=== PATIENT | female | born 1985 ===

== ENCOUNTER 2017-04-28 02:25 | Emergency (ER) | payer SELFPAY ==
[2017-04-28 02:50] VITALS: BMI 23.0
[2017-04-28] MEDS ORDERED: Simethicone 80 mg Chewtab PO STA (02:50)
[2017-04-28 02:51] VITALS: BP 115/70; PULSE 76; RESP 18; TEMP 98.6; O2SAT 100
[2017-04-28 03:16] LABS: BASO % 0.5 % (0.0-2.0); EOS # 0.1 K/uL (0.0-0.7); EOS % 1.3 % (0.0-4.0); HEMATOCRIT 30.9 % (34.0-47.0); LYMPH # 2.3 K/uL (1.0-4.3); LYMPH % 28.6 % (20.0-40.0); MEAN CELL VOLUME 64.8 fl (81.0-99.0); MEAN CORPUSCULAR HEMOGLOBIN 20.4 pg (27.0-31.0); MEAN CORPUSCULAR HGB CONC 31.4 g/dL (33.0-37.0); MEAN PLATELET VOLUME 6.3 fl (7.2-11.7); MONO # 0.6 K/uL (0.0-0.8); MONO % 7.8 % (0.0-10.0); NEUT # 4.9 K/uL (1.8-7.0); NEUT % 61.8 % (50.0-75.0); RED CELL DISTRIBUTION WIDTH 19.3 % (11.5-14.5); WHITE BLOOD COUNT 7.9 K/uL (4.8-10.8)
[2017-04-28 03:23] LABS: BLOOD UREA NITROGEN 12 mg/dl (7-17); CALCIUM 8.9 mg/dL (8.4-10.2); CARBON DIOXIDE 24 mmol/L (22-30); CHLORIDE 104 mmol/L (98-107); GFR AFRICAN-AMERICAN > 60; GLUCOSE,RANDOM 94 mg/dL (65-105); POTASSIUM 3.9 MMOL/L (3.6-5.0); SODIUM 141 mmol/l (132-148)
== END 2017-04-28 05:27 | disposition home or self-care (01) ==
LOC: H.ER 02:25
DX: R10.9 Unspecified abdominal pain (principal); R07.89 Other chest pain
CPT/HCPCS: 71020; 80048; 81025; 85025; 96374; 99283; J1885

== ENCOUNTER 2018-10-25 20:08 | Inpatient (IN) | payer OTHER ==
[2018-10-25 20:09] VITALS: BMI 23.0
--- NOTE | 2018-10-25 21:09 | ED PDOC ---
HPI: Psych/Substance Abuse Time Seen by Provider: 10/25/18 20:45 Chief Complaint (Nursing): Psychiatric Evaluation Chief Complaint (Provider): Psychiatric Evaluation History Per: Patient, Other (Friend) History/Exam Limitations: no limitations Onset/Duration Of Symptoms: Hrs Current Symptoms Are (Timing): Still Present Additional Complaint(s): Patient is a 33 y/o female with no significant PMHx who was brought into the ED by a family friend for psychiatric evaluation. Patient's family and friend believe the patient is not behaving like her normal active self. Patient's friend states she has been spacing out. Pt states she really does not know why she is here. She denies any being sad. No previous psych history. Patient denies any medical complaints, substance abuse, SI/HI, and visual/auditory hallucinations. Of note, patient's LMP was last month. PCP: None Provided Past Medical History Reviewed: Historical Data, Nursing Documentation, Vital Signs Vital Signs: Last Vital Signs Temp 98.4 F 10/25/18 20:43 Pulse 62 10/25/18 20:43 Resp 18 10/25/18 20:43 BP 97/46 L 10/25/18 20:43 Pulse Ox 100 10/25/18 20:43 - Medical History PMH: No Chronic Diseases - Surgical History Surgical History: Appendectomy - Family History Family History: States: No Known Family Hx - Social History Current smoker - smoking cessation education provided: No Ex-Smoker (has not smoked in the last 12 months): No Alcohol: None Drugs: Denies - Home Medications Home Medications: Ambulatory Orders Medication Instructions Recorded Ibuprofen [Motrin Tab] 600 mg PO Q6 #30 tab 04/28/17 Simethicone [Gas Relief] 80 mg PO BID #30 ctb 04/28/17 - Allergies Allergies/Adverse Reactions: Allergies Allergy/AdvReac Type Severity Reaction Status Date / Time No Known Allergies Allergy Verified 04/28/17 02:47 Review of Systems ROS Statement: Except As Marked, All Systems Reviewed And Found Negative Neurological: Negative for: Other (visual or aduitory hallucinations) Psych: Negative for: Suicidal ideation (or homicidal ideation) Physical Exam - Reviewed Nursing Documentation Reviewed: Yes Vital Signs Reviewed: Yes - Physical Exam Comments: GENERAL APPEARANCE: Patient is awake, alert, oriented x 3, in no acute distress. SKIN: Warm, dry; (-) cyanosis HEAD: (-) scalp swelling, (-) scalp tenderness. EYES: (-) conjunctival pallor, (-) scleral icterus, (-) nystagmus. ENMT: Mucous membranes moist. Airway patent: (-) stridor. NECK: (-) tenderness, (-) stiffness, (-) lymphadenopathy. HEART AND CARDIOVASCULAR: (-) irregularity; (-) murmur, (-) gallop. CHEST AND RESPIRATORY: (-) rales, (-) rhonchi, (-) wheezes; breath sounds equal. ABDOMEN: Soft, (-) distention, (-) tenderness, (-) guarding. NEURO AND PSYCH: Mental status as above. Affect: monotone. flat software systems architect: Intact. Pupils equal and reactive; EOMI; (-) facial asymmetry; tongue and uvula midline. Strength and DTRs symmetric. - Laboratory Results Result Diagrams: 10/25/18 21:31 10/25/18 21:31 - ECG O2 Sat by Pulse Oximetry: 100 (RA) Pulse Ox Interpretation: Normal Medical Decision Making Medical Decision Making: Time: 2056 Impression: Crisis Evaluation Plan: Alcohol Serum CMP Drug Screen Urine CBC UA 22:30 labs and urine are back, pt anemic, with history of discussed with crisis, recommend ct head to r/o any other causes CT head w/o contrast ordered 23:20 CT Head FINDINGS: BRAIN No acute intraparenchymal hemorrhage. No mass lesion. No CT evidence for acute territorial infarct. No midline shift or extra-axial collections. VENTRICLES: Note is made of a subtle 2.5 x 2.0 cm area demonstrating hypoattenuation in the right medial frontal lobe involving the right caudate head and adjacent anterior limb of the right internal capsule. Mass effect with slight compression of the anterior horn of the right lateral ventricle is noted. Underlying mass lesion is not excluded. Follow-up with MRI pre/post contrast is recommended. ORBITS: The orbits are unremarkable. SINUSES AND MASTOIDS: The paranasal sinuses and mastoid air cells are clear. BONES: No fracture. SOFT TISSUES: Unremarkable. IMPRESSION: Abnormal areas in the right frontal lobe as above, mass lesion is not excluded. Follow-up with MRI pre/post contrast is recommended. Will contact neuro and admit to medicine 23:39 spoke to hospitalist who accept pt for admission, Dr. skinner 23:41 spoke to neurologist, Dr. Anaya, recommends MRI and EEG Scribe Attestation: Documented by Beka Abbott, acting as a scribe for Jose Richey PA-C Provider Scribe Attestation: All medical record entries made by the Scribe were at my direction and personally dictated by me. I have reviewed the chart and agree that the record accurately reflects my personal performance of the history, physical exam, medical decision making, and the department course for this patient. I have also personally directed, reviewed, and agree with the discharge instructions and disposition. Disposition - Clinical Impression Clinical Impression: Mass of brain, Anemia - Patient ED Disposition Is Patient to be Admitted: Yes Doctor Will See Patient In The: Hospital - Disposition Disposition Time: 23:40 Condition: STABLE Forms: [employer] (Lao) - Pt Status Changed To: Hospital Disposition Of: Inpatient - Admit Certification Admit to Inpatient:: After my assessment, the patient will require hospitalization for at least two midnights. This is because of the severity of symptoms shown, intensity of services needed, and/or the medical risk in this patient being treated as an outpatient. - POA Present On Arrival: None
[2018-10-25 21:46] LABS: BASO % 0.5 % (0.0-2.0); EOS # 0.1 K/uL (0.0-0.7); EOS % 1.5 % (0.0-4.0); HEMOGLOBIN 8.4 g/dL (12.0-16.0); LYMPH # 1.5 K/uL (1.0-4.3); MEAN CELL VOLUME 63.9 fl (81.0-99.0); MEAN CORPUSCULAR HEMOGLOBIN 19.6 pg (27.0-31.0); MEAN CORPUSCULAR HGB CONC 30.7 g/dL (33.0-37.0); MEAN PLATELET VOLUME 6.1 fl (7.2-11.7); MONO # 0.4 K/uL (0.0-0.8); NEUT # 3.2 K/uL (1.8-7.0); NRBC % 0.1 % (0.0-0.0); RBC 4.3 Mil/uL (3.80-5.20); RED CELL DISTRIBUTION WIDTH 18.7 % (11.5-14.5); WHITE BLOOD COUNT 5.3 K/uL (4.8-10.8)
[2018-10-25 21:55] LABS: SQUAMOUS EPITHIAL < 1 /hpf (0-5); URINE BILIRUBIN NEGATIVE (NEGATIVE); URINE BLOOD NEGATIVE (NEGATIVE); URINE CLARITY CLEAR (Clear); URINE COLOR YELLOW (YELLOW); URINE GLUCOSE (UA) NEG (NEGATIVE); URINE LEUKOCYTE ESTERASE TRACE Leu/uL (Negative); URINE PROTEIN NEGATIVE (NEGATIVE); URINE UROBILINOGEN 0.2-1.0 mg/dL (0.2-1.0)
[2018-10-25 21:56] LABS: ALB/GLOB RATIO 1.2 (1.0-2.1); ALBUMIN 4.2 g/dL (3.5-5.0); ALT/SGPT 35 U/L (9-52); AST/SGOT 25 U/L (14-36); BLOOD UREA NITROGEN 11 mg/dl (7-17); CALCIUM 8.7 mg/dL (8.4-10.2); GFR NON-AFRICAN AMERICAN > 60
[2018-10-25 22:14] LABS: BARBITURATES, UR NEGATIVE (NEGATIVE); BENZODIAZEPINES, UR NEGATIVE (NEGATIVE); OPIATES, UR NEGATIVE (NEGATIVE); PHENCYCLIDINE, UR NEGATIVE (NEGATIVE)
--- NOTE | 2018-10-26 00:24 | CP.PCM.HP ---
<Tom Eric - Last Filed: 10/26/18 00:55> History of Present Illness - History of Present Illness History of Present Illness: This is 33 y/o F with no significant PMH admitted to [facility] for evaluation and treatment of R frontal lobe mass lesion. As per patient, she was brought here by family/friends due to one day hx of abnormal behavior, flat affect and drowsiness. Patient denies any knowledge of this findings, reports she feels fine, just feels sleepy today and " I don't know why I am here". Denies any previous psych history, substance use, depression, SI/HI, Anxiety or weakness. No chest pain/SOB/Blurred vision/headaches or urinary symptoms. History gathered by patient, Family friend not present during my interview. PMD: None PMH: Denies PSH: Denies Alllg: NKDA SH: Denies alcohol/smoking or drug use FH: Denies psych history or any medical conditions. ROS: As per HPI ER Course: VS: stable CBC: + anemia CMP, urine and U tox negative for any significant findings Crisis Eval CT head: F/u official read, R frontal lobe mass lesion Present on Admission - Present on Admission Any Indicators Present on Admission: No Review of Systems - Constitutional Constitutional: Daytime Sleepiness - EENT Eyes: absent: Blurred Vision, Change in Vision, Dry Eye, Floaters, Pain, Photophobia, Sees Flashes, Spots in Vision Ears: absent: Decreased Hearing, Disequilibrium, Dizziness Nose/Mouth/Throat: absent: Nasal Congestion, Dry Mouth, Hoarsness - Breasts Breasts: absent: Pain - Cardiovascular Cardiovascular: absent: Chest Pain, Palpitations - Respiratory Respiratory: absent: Cough, Dyspnea, Hemoptysis, Dyspnea on Exertion - Gastrointestinal Gastrointestinal: absent: Abdominal Pain - Genitourinary Genitourinary: absent: Change in Urinary Stream, Dysuria - Musculoskeletal Musculoskeletal: absent: Abnormal Gait, Arthralgias, Muscle Cramps, Muscle Weakness, Stiffness, Tingling - Integumentary Integumentary: absent: Dry Skin, Lesions, Rash - Neurological Neurological: absent: Abnormal Hearing, Abnormal Movements, Abnormal Speech, Behavioral Changes, Dizziness, Numbness, Paresthesias, Syncope, Tingling, Tremor, Vertigo, Weakness, Other Visual Disturbances - Psychiatric Psychiatric: absent: Anxiety, Confusion, Depression, Hallucinations, Homicidal Ideation, Panic Attacks, Suicidal Ideation, Visual Hallucinations, Tactile Hallucinations - Endocrine Endocrine: absent: Change in Body Appearance - Hematologic/Lymphatic Hematologic: absent: Easy Bleeding Past Patient History - Past Social History Alcohol: None Drugs: Denies - PSYCHIATRIC Hx Substance Use: No - SURGICAL HISTORY Hx Appendectomy: Yes - ANESTHESIA Hx Anesthesia: Yes Hx Anesthesia Reactions: No Hx Malignant Hyperthermia: No Meds Allergies/Adverse Reactions: Allergies Allergy/AdvReac Type Severity Reaction Status Date / Time No Known Allergies Allergy Verified 04/28/17 02:47 Physical Exam - Constitutional Appears: No Acute Distress, Other (Flat affect ) - Head Exam Head Exam: ATRAUMATIC, NORMAL INSPECTION, NORMOCEPHALIC - Eye Exam Eye Exam: EOMI, Normal appearance, PERRL Pupil Exam: NORMAL ACCOMODATION - ENT Exam ENT Exam: Mucous Membranes Moist, Normal Exam - Neck Exam Neck exam: Positive for: Normal Inspection - Respiratory Exam Respiratory Exam: Clear to Auscultation Bilateral, NORMAL BREATHING PATTERN. absent: Decreased Breath Sounds, Rhonchi, Wheezes, Respiratory Distress - Cardiovascular Exam Cardiovascular Exam: REGULAR RHYTHM, +S1, +S2 - GI/Abdominal Exam GI & Abdominal Exam: Normal Bowel Sounds, Soft. absent: Tenderness - Extremities Exam Extremities exam: Positive for: normal capillary refill, normal inspection, pedal pulses present. Negative for: tenderness - Back Exam Back exam: NORMAL INSPECTION. absent: CVA tenderness (L), CVA tenderness (R) - Neurological Exam Neurological exam: Alert, CN II-XII Intact, Oriented x3, Reflexes Normal Additional comments: negative babinski Good finger to nose coordination Strength 5/5 UEs and LEs AAOx3 - Psychiatric Exam Psychiatric exam: Flat Affect - Skin Skin Exam: Dry, Intact, Normal Color, Warm Results - Vital Signs Recent Vital Signs: Last Vital Signs Temp 98 F 10/25/18 23:46 Pulse 70 10/25/18 23:46 Resp 18 10/25/18 23:46 BP 98/56 L 10/25/18 23:46 Pulse Ox 100 10/25/18 23:55 - Labs Result Diagrams: 10/25/18 21:31 10/25/18 21:31 Labs: Laboratory Results - last 24 hr 10/25/18 10/25/18 10/25/18 21:31 21:31 21:31 WBC 5.3 RBC 4.30 Hgb 8.4 L Hct 27.5 L MCV 63.9 L MCH 19.6 L MCHC 30.7 L RDW 18.7 H Plt Count 449 H MPV 6.1 L Neut % (Auto) 61.0 Lymph % (Auto) 29.0 [place] % (Auto) 8.0 Eos % (Auto) 1.5 Baso % (Auto) 0.5 Neut # (Auto) 3.2 Lymph # (Auto) 1.5 [place] # (Auto) 0.4 Eos # (Auto) 0.1 Baso # (Auto) 0.0 Sodium 138 Potassium 3.7 Chloride 102 Carbon Dioxide 26 Anion Gap 14 BUN 11 Creatinine 0.6 L Est GFR ( Amer) > 60 Est GFR (Non-Af Amer) > 60 Random Glucose 88 Calcium 8.7 Total Bilirubin 0.6 AST 25 ALT 35 Alkaline Phosphatase 87 Total Protein 7.7 Albumin 4.2 Globulin 3.5 Albumin/Globulin Ratio 1.2 Urine Color Urine Clarity Urine pH Ur Specific [place] Urine Protein Urine Glucose (UA) Urine Ketones Urine Blood Urine Nitrate Urine Bilirubin Urine Urobilinogen Ur Leukocyte Esterase Urine RBC (Auto) Urine Microscopic WBC Ur Squamous Epith Cells Urine Opiates Screen Negative Urine Methadone Screen Negative Ur Barbiturates Screen Negative Ur Phencyclidine Scrn Negative Ur Amphetamines Screen Negative U Benzodiazepines Scrn Negative U Oth Cocaine Metabols Negative U Cannabinoids Screen Negative Alcohol, Quantitative < 10 10/25/18 21:31 WBC RBC Hgb Hct MCV MCH MCHC RDW Plt Count MPV Neut % (Auto) Lymph % (Auto) [place] % (Auto) Eos % (Auto) Baso % (Auto) Neut # (Auto) Lymph # (Auto) [place] # (Auto) Eos # (Auto) Baso # (Auto) Sodium Potassium Chloride Carbon Dioxide Anion Gap BUN Creatinine Est GFR ( Amer) Est GFR (Non-Af Amer) Random Glucose Calcium Total Bilirubin AST ALT Alkaline Phosphatase Total Protein Albumin Globulin Albumin/Globulin Ratio Urine Color Yellow Urine Clarity Clear Urine pH 6.0 Ur Specific [place] 1.013 Urine Protein Negative Urine Glucose (UA) Neg Urine Ketones Negative Urine Blood Negative Urine Nitrate Negative Urine Bilirubin Negative Urine Urobilinogen 0.2-1.0 Ur Leukocyte Esterase Trace Urine RBC (Auto) 1 Urine Microscopic WBC < 1 Ur Squamous Epith Cells < 1 Urine Opiates Screen Urine Methadone Screen Ur Barbiturates Screen Ur Phencyclidine Scrn Ur Amphetamines Screen U Benzodiazepines Scrn U Oth Cocaine Metabols U Cannabinoids Screen Alcohol, Quantitative Assessment & Plan - Assessment and Plan (Free Text) Assessment: A/P: 33 y/o F with no significant PMH admitted to [facility] for evaluation and treatment of R frontal lobe mass lesion. R frontal lobe mass lesion, Behavior changes - CT head: F/u official read - Consult Neurology, Dr. Anaya, f/u recommendations - F/u MRI w/ and w/o CONT - F/u EEG - Monitor for any behavior changes - F/u TSH/B12/Folate - Admit to tele Behavior changes/ Flat affect - Consult Psych, f/u recommendations - F/u TSH/B12/Folate Microcytic Anemia, Chronic - F/u Iron/TIBC and Ferritin DVT PPX - SCD/Ambulatory <Duane Rae - Last Filed: 10/26/18 06:21> Results - Vital Signs Recent Vital Signs: Last Vital Signs Temp 98 F 10/25/18 23:46 Pulse 70 10/25/18 23:46 Resp 18 10/25/18 23:46 BP 98/56 L 10/25/18 23:46 Pulse Ox 100 10/25/18 23:55 - Labs Result Diagrams: 10/25/18 21:31 10/25/18 21:31 Labs: Laboratory Results - last 24 hr 10/25/18 10/25/18 10/25/18 21:31 21:31 21:31 WBC 5.3 RBC 4.30 Hgb 8.4 L Hct 27.5 L MCV 63.9 L MCH 19.6 L MCHC 30.7 L RDW 18.7 H Plt Count 449 H MPV 6.1 L Neut % (Auto) 61.0 Lymph % (Auto) 29.0 [place] % (Auto) 8.0 Eos % (Auto) 1.5 Baso % (Auto) 0.5 Neut # (Auto) 3.2 Lymph # (Auto) 1.5 [place] # (Auto) 0.4 Eos # (Auto) 0.1 Baso # (Auto) 0.0 Sodium 138 Potassium 3.7 Chloride 102 Carbon Dioxide 26 Anion Gap 14 BUN 11 Creatinine 0.6 L Est GFR ( Amer) > 60 Est GFR (Non-Af Amer) > 60 Random Glucose 88 Calcium 8.7 Total Bilirubin 0.6 AST 25 ALT 35 Alkaline Phosphatase 87 Total Protein 7.7 Albumin 4.2 Globulin 3.5 Albumin/Globulin Ratio 1.2 Urine Color Urine Clarity Urine pH Ur Specific [place] Urine Protein Urine Glucose (UA) Urine Ketones Urine Blood Urine Nitrate Urine Bilirubin Urine Urobilinogen Ur Leukocyte Esterase Urine RBC (Auto) Urine Microscopic WBC Ur Squamous Epith Cells Urine Opiates Screen Negative Urine Methadone Screen Negative Ur Barbiturates Screen Negative Ur Phencyclidine Scrn Negative Ur Amphetamines Screen Negative U Benzodiazepines Scrn Negative U Oth Cocaine Metabols Negative U Cannabinoids Screen Negative Alcohol, Quantitative < 10 10/25/18 21:31 WBC RBC Hgb Hct MCV MCH MCHC RDW Plt Count MPV Neut % (Auto) Lymph % (Auto) [place] % (Auto) Eos % (Auto) Baso % (Auto) Neut # (Auto) Lymph # (Auto) [place] # (Auto) Eos # (Auto) Baso # (Auto) Sodium Potassium Chloride Carbon Dioxide Anion Gap BUN Creatinine Est GFR ( Amer) Est GFR (Non-Af Amer) Random Glucose Calcium Total Bilirubin AST ALT Alkaline Phosphatase Total Protein Albumin Globulin Albumin/Globulin Ratio Urine Color Yellow Urine Clarity Clear Urine pH 6.0 Ur Specific [place] 1.013 Urine Protein Negative Urine Glucose (UA) Neg Urine Ketones Negative Urine Blood Negative Urine Nitrate Negative Urine Bilirubin Negative Urine Urobilinogen 0.2-1.0 Ur Leukocyte Esterase Trace Urine RBC (Auto) 1 Urine Microscopic WBC < 1 Ur Squamous Epith Cells < 1 Urine Opiates Screen Urine Methadone Screen Ur Barbiturates Screen Ur Phencyclidine Scrn Ur Amphetamines Screen U Benzodiazepines Scrn U Oth Cocaine Metabols U Cannabinoids Screen Alcohol, Quantitative Assessment & Plan - Assessment and Plan (Free Text) Plan: History as documented by resident was reviewed with patient and resident. I performed the parnell elements of exam and agree with the above findings. Diagnostics were reviewed and medical decision making and plan of care performed by me. 33 yo female with no significant PMH p/w AMS. Denies any complaints but as per friend who brought her in she has not been acting like herself. On my exam she is AAOx3 but kind of somnolent with flat mood and affect. Neuro-exam completely non-focal. Blood work unremarkable except for anemia. CT head I personally reviewed showed suspicious right frontal lobe lesion. neurology on board recommended MRI. Will follow recommendations.
--- NOTE | 2018-10-26 08:05 | CP.PCM.CON ---
History of Present Illness - History of Present Illness History of Present Illness: Psychiatry consult note; consult called to evaluated bizarre behavior CC: "I'm fine." HPI: 33 yo female w/ no past psychiatric or medical history, presented w/ abnormal behavior, found to have low-attenuation in the head of the right caudate nuclear limb right internal capsule w/ mass-effect upon frontal horn right lateral ventricle on head CT. Patient denies acute depression/anxiety/AH/VH/SI/HI/paranoia/delusions. She denies acute psychiatric complaints. A+ O x 4. No acute bizarre behavior observed; no behavioral disturbances or agitation in the ER. Patient does not believe she needs any psychiatric treatment at this time. PMD: None PMH: Denies PPH: Denies PSH: Denies ALL: NKDA SH: Denies alcohol/smoking or drug use; from [facility], lives w/ and two children FH: Denies psych history or any medical conditions. Impression: 33 yo female w/ no acute psychiatric complaints, likely had behavioral changes secondary to acute neurological condition. -No acute psychiatric medications or treatment indicated at this time -Recommend neurology consult and further brain imaging as recommended by neurology oim consultant Past Patient History - Past Social History Alcohol: None Drugs: Denies - PSYCHIATRIC Hx Substance Use: No - SURGICAL HISTORY Hx Appendectomy: Yes - ANESTHESIA Hx Anesthesia: Yes Hx Anesthesia Reactions: No Hx Malignant Hyperthermia: No Meds Allergies/Adverse Reactions: Allergies Allergy/AdvReac Type Severity Reaction Status Date / Time No Known Allergies Allergy Verified 04/28/17 02:47 - Medications Medications: Current Medications Ibuprofen (Motrin Tab) 400 mg PO Q6 PRN PRN Reason: Fever >100.4 F Ondansetron HCl (Zofran Inj) 4 mg IVP Q6 PRN PRN Reason: Nausea/Vomiting Results - Vital Signs Recent Vital Signs: Last Vital Signs Temp 98.7 F 10/26/18 05:27 Pulse 65 10/26/18 06:28 Resp 16 10/26/18 06:28 BP 98/60 L 10/26/18 06:28 Pulse Ox 98 10/26/18 06:28 - Labs Result Diagrams: 10/25/18 21:31 10/25/18 21:31 Labs: Laboratory Results - last 24 hr 10/25/18 10/25/18 10/25/18 21:31 21:31 21:31 WBC 5.3 RBC 4.30 Hgb 8.4 L Hct 27.5 L MCV 63.9 L MCH 19.6 L MCHC 30.7 L RDW 18.7 H Plt Count 449 H MPV 6.1 L Neut % (Auto) 61.0 Lymph % (Auto) 29.0 [place] % (Auto) 8.0 Eos % (Auto) 1.5 Baso % (Auto) 0.5 Neut # (Auto) 3.2 Lymph # (Auto) 1.5 [place] # (Auto) 0.4 Eos # (Auto) 0.1 Baso # (Auto) 0.0 Sodium 138 Potassium 3.7 Chloride 102 Carbon Dioxide 26 Anion Gap 14 BUN 11 Creatinine 0.6 L Est GFR ( Amer) > 60 Est GFR (Non-Af Amer) > 60 Random Glucose 88 Calcium 8.7 Total Bilirubin 0.6 AST 25 ALT 35 Alkaline Phosphatase 87 Total Protein 7.7 Albumin 4.2 Globulin 3.5 Albumin/Globulin Ratio 1.2 Urine Color Urine Clarity Urine pH Ur Specific [place] Urine Protein Urine Glucose (UA) Urine Ketones Urine Blood Urine Nitrate Urine Bilirubin Urine Urobilinogen Ur Leukocyte Esterase Urine RBC (Auto) Urine Microscopic WBC Ur Squamous Epith Cells Urine Opiates Screen Negative Urine Methadone Screen Negative Ur Barbiturates Screen Negative Ur Phencyclidine Scrn Negative Ur Amphetamines Screen Negative U Benzodiazepines Scrn Negative U Oth Cocaine Metabols Negative U Cannabinoids Screen Negative Alcohol, Quantitative < 10 10/25/18 21:31 WBC RBC Hgb Hct MCV MCH MCHC RDW Plt Count MPV Neut % (Auto) Lymph % (Auto) [place] % (Auto) Eos % (Auto) Baso % (Auto) Neut # (Auto) Lymph # (Auto) [place] # (Auto) Eos # (Auto) Baso # (Auto) Sodium Potassium Chloride Carbon Dioxide Anion Gap BUN Creatinine Est GFR ( Amer) Est GFR (Non-Af Amer) Random Glucose Calcium Total Bilirubin AST ALT Alkaline Phosphatase Total Protein Albumin Globulin Albumin/Globulin Ratio Urine Color Yellow Urine Clarity Clear Urine pH 6.0 Ur Specific [place] 1.013 Urine Protein Negative Urine Glucose (UA) Neg Urine Ketones Negative Urine Blood Negative Urine Nitrate Negative Urine Bilirubin Negative Urine Urobilinogen 0.2-1.0 Ur Leukocyte Esterase Trace Urine RBC (Auto) 1 Urine Microscopic WBC < 1 Ur Squamous Epith Cells < 1 Urine Opiates Screen Urine Methadone Screen Ur Barbiturates Screen Ur Phencyclidine Scrn Ur Amphetamines Screen U Benzodiazepines Scrn U Oth Cocaine Metabols U Cannabinoids Screen Alcohol, Quantitative
[2018-10-26 08:17] LABS: IRON 28 ug/dL (37-170)
[2018-10-26 08:24] LABS: % IRON SATURATION 7 % (20-55); TOTAL IRON BINDING CAPACITY 404 ug/dL (250-450)
[2018-10-26 08:56] LABS: FERRITIN 4.8 ng/Ml (6.24-137.0)
--- NOTE | 2018-10-26 08:56 | CT ---
Date of service: 10/25/2018 PROCEDURE: CT HEAD WITHOUT CONTRAST. HISTORY: bizzarre behavior COMPARISON: None available. TECHNIQUE: Axial computed tomography images were obtained through the head/brain without intravenous contrast. Radiation dose: Total exam DLP = 670.89 mGy-cm. This CT exam was performed using one or more of the following dose reduction techniques: Automated exposure control, adjustment of the mA and/or kV according to patient size, and/or use of iterative reconstruction technique. FINDINGS: HEMORRHAGE: No intracranial hemorrhage. BRAIN: Low attenuation in the head of the right caudate nucleus and possibly anterior limb right internal capsule. Suspicious for infarct of indeterminate chronicity. Possibly subacute. There is resulting mild mass-effect upon the frontal horn of the right lateral ventricle. No hemorrhage. No other infarct appreciated elsewhere. VENTRICLES: Unremarkable. No hydrocephalus. CALVARIUM: Unremarkable. PARANASAL SINUSES: Unremarkable as visualized. No significant inflammatory changes. MASTOID AIR CELLS: Unremarkable as visualized. No inflammatory changes. OTHER FINDINGS: None. IMPRESSION: Low-attenuation in the head of the right caudate nucleus and anterior limb right internal capsule with mass-effect upon frontal horn right lateral ventricle. Possible ischemic change, likely subacute. Recommend further evaluation with magnetic resonance imaging. The preliminary findings for this examination were reported by [facility] at 11:23 p.m. on 10/25/2018. There is concurrence of this report with the preliminary findings.
--- NOTE | 2018-10-26 13:37 | CP.PCM.CON ---
History of Present Illness - History of Present Illness History of Present Illness: Neurology Consultation Note: Consult requested by Dr. Rae Ms. Dial is a 33-year-old woman with no significant past medical history, who was brought to the ED by family for worsening affect, somnolence and change in personality. A CT scan of the head was performed and showed a right frontal, caudate hypodense area with mild mass effect consistent with a possible subacute ischemic stroke. Review of Systems - Review of Systems Systems not reviewed;Unavailable: Altered Mental Status Past Patient History - Past Social History Alcohol: None Drugs: Denies - PSYCHIATRIC Hx Substance Use: No - SURGICAL HISTORY Hx Appendectomy: Yes - ANESTHESIA Hx Anesthesia: Yes Hx Anesthesia Reactions: No Hx Malignant Hyperthermia: No Meds Allergies/Adverse Reactions: Allergies Allergy/AdvReac Type Severity Reaction Status Date / Time No Known Allergies Allergy Verified 04/28/17 02:47 - Medications Medications: Current Medications Iron Sucrose 100 mg/ Sodium (Chloride) 105 mls @ 105 mls/hr IVPB DAILY [facility] Last Admin: 10/26/18 10:23 Dose: 105 mls/hr Ibuprofen (Motrin Tab) 400 mg PO Q6 PRN PRN Reason: Fever >100.4 F Ondansetron HCl (Zofran Inj) 4 mg IVP Q6 PRN PRN Reason: Nausea/Vomiting Physical Exam - Constitutional Appears: Well - Head Exam Head Exam: ATRAUMATIC, NORMAL INSPECTION, NORMOCEPHALIC - Eye Exam Eye Exam: EOMI, Normal appearance, PERRL Pupil Exam: NORMAL ACCOMODATION, PERRL - ENT Exam ENT Exam: Mucous Membranes Moist, Normal Exam - Neck Exam Neck exam: Positive for: Normal Inspection - Respiratory Exam Respiratory Exam: Clear to Auscultation Bilateral, NORMAL BREATHING PATTERN - Cardiovascular Exam Cardiovascular Exam: REGULAR RHYTHM - GI/Abdominal Exam GI & Abdominal Exam: Normal Bowel Sounds, Soft. absent: Tenderness - Extremities Exam Extremities exam: Positive for: normal inspection - Back Exam Back exam: NORMAL INSPECTION - Neurological Exam Neurological exam: Alert, CN II-XII Intact, Normal Gait, Oriented x3, Reflexes Normal - Psychiatric Exam Psychiatric exam: Depressed, Flat Affect - Skin Skin Exam: Dry, Intact, Normal Color, Warm Results - Vital Signs Recent Vital Signs: Last Vital Signs Temp 98.7 F 10/26/18 05:27 Pulse 73 10/26/18 09:09 Resp 18 04/04/19 09:09 BP 114/59 L 10/26/18 09:09 Pulse Ox 100 10/26/18 09:35 - Labs Result Diagrams: 10/25/18 21:31 10/25/18 21:31 Labs: Laboratory Results - last 24 hr 10/25/18 10/25/18 10/25/18 21:31 21:31 21:31 WBC 5.3 RBC 4.30 Hgb 8.4 L Hct 27.5 L MCV 63.9 L MCH 19.6 L MCHC 30.7 L RDW 18.7 H Plt Count 449 H MPV 6.1 L Neut % (Auto) 61.0 Lymph % (Auto) 29.0 [place] % (Auto) 8.0 Eos % (Auto) 1.5 Baso % (Auto) 0.5 Neut # (Auto) 3.2 Lymph # (Auto) 1.5 [place] # (Auto) 0.4 Eos # (Auto) 0.1 Baso # (Auto) 0.0 Sodium 138 Potassium 3.7 Chloride 102 Carbon Dioxide 26 Anion Gap 14 BUN 11 Creatinine 0.6 L Est GFR ( Amer) > 60 Est GFR (Non-Af Amer) > 60 Random Glucose 88 Calcium 8.7 Iron TIBC % Saturation Ferritin Total Bilirubin 0.6 AST 25 ALT 35 Alkaline Phosphatase 87 Total Protein 7.7 Albumin 4.2 Globulin 3.5 Albumin/Globulin Ratio 1.2 Vitamin B12 Free T4 TSH 3rd Generation Urine Color Urine Clarity Urine pH Ur Specific Alex Urine Protein Urine Glucose (UA) Urine Ketones Urine Blood Urine Nitrate Urine Bilirubin Urine Urobilinogen Ur Leukocyte Esterase Urine RBC (Auto) Urine Microscopic WBC Ur Squamous Epith Cells Urine Opiates Screen Negative Urine Methadone Screen Negative Ur Barbiturates Screen Negative Ur Phencyclidine Scrn Negative Ur Amphetamines Screen Negative U Benzodiazepines Scrn Negative U Oth Cocaine Metabols Negative U Cannabinoids Screen Negative Alcohol, Quantitative < 10 10/25/18 10/26/18 10/26/18 21:31 07:30 07:30 WBC RBC Hgb Hct MCV MCH MCHC RDW Plt Count MPV Neut % (Auto) Lymph % (Auto) [place] % (Auto) Eos % (Auto) Baso % (Auto) Neut # (Auto) Lymph # (Auto) [place] # (Auto) Eos # (Auto) Baso # (Auto) Sodium Potassium Chloride Carbon Dioxide Anion Gap BUN Creatinine Est GFR ( Amer) Est GFR (Non-Af Amer) Random Glucose Calcium Iron 28 L TIBC 404 % Saturation 7 L Ferritin 4.8 L Total Bilirubin AST ALT Alkaline Phosphatase Total Protein Albumin Globulin Albumin/Globulin Ratio Vitamin B12 < 159 L Free T4 TSH 3rd Generation 1.38 Urine Color Yellow Urine Clarity Clear Urine pH 6.0 Ur Specific Alex 1.013 Urine Protein Negative Urine Glucose (UA) Neg Urine Ketones Negative Urine Blood Negative Urine Nitrate Negative Urine Bilirubin Negative Urine Urobilinogen 0.2-1.0 Ur Leukocyte Esterase Trace Urine RBC (Auto) 1 Urine Microscopic WBC < 1 Ur Squamous Epith Cells < 1 Urine Opiates Screen Urine Methadone Screen Ur Barbiturates Screen Ur Phencyclidine Scrn Ur Amphetamines Screen U Benzodiazepines Scrn U Oth Cocaine Metabols U Cannabinoids Screen Alcohol, Quantitative 10/26/18 07:30 WBC RBC Hgb Hct MCV MCH MCHC RDW Plt Count MPV Neut % (Auto) Lymph % (Auto) [place] % (Auto) Eos % (Auto) Baso % (Auto) Neut # (Auto) Lymph # (Auto) [place] # (Auto) Eos # (Auto) Baso # (Auto) Sodium Potassium Chloride Carbon Dioxide Anion Gap BUN Creatinine Est GFR ( Amer) Est GFR (Non-Af Amer) Random Glucose Calcium Iron TIBC % Saturation Ferritin Total Bilirubin AST ALT Alkaline Phosphatase Total Protein Albumin Globulin Albumin/Globulin Ratio Vitamin B12 Free T4 0.94 TSH 3rd Generation Urine Color Urine Clarity Urine pH Ur Specific Alex Urine Protein Urine Glucose (UA) Urine Ketones Urine Blood Urine Nitrate Urine Bilirubin Urine Urobilinogen Ur Leukocyte Esterase Urine RBC (Auto) Urine Microscopic WBC Ur Squamous Epith Cells Urine Opiates Screen Urine Methadone Screen Ur Barbiturates Screen Ur Phencyclidine Scrn Ur Amphetamines Screen U Benzodiazepines Scrn U Oth Cocaine Metabols U Cannabinoids Screen Alcohol, Quantitative Assessment & Plan (1) Acute encephalopathy Assessment and Plan: This appears to be related to the area of ischemia and mass effect in the right frontal and subcortical region. Based on the non-contrast CT head, it appears t o be an ischemic stroke. However, a mass is also possible. I recommend the followin. Telemetry 2. MRI brain with and without contrast 3. MRA of the head/neck without contrast 4. Echocardiogram with bubble study 5. Aspirin 81 mg daily 6. Lipid panel, HbA1c, B12, folate, TSH, Vitamin D level, Hypercoagulable work- up 7. Fluids with NS at 100 mL/hr 8. Normal BP 9. Lipitor 40 mg daily 10. Case management consult Thank you for this consultation. Status: Acute
[2018-10-26] MEDS ORDERED: Gadodiamide 287 MG/ML VIAL (15ML) IV ONE (13:46)
--- NOTE | 2018-10-26 14:41 | CP.PCM.PCO ---
Physician Communication Note - Physician Communication Note Physician Communication Note: Suspect ischemic stroke vs mass Addendum Addendum: The patient had just left to MRI as I arrived to see her in the ED. She will have MRI brain with and without contrast as well as MRA of the head/neck without contrast. It is expected that she will be in MRI for about 1.5 hours. I would like to video examine the patient when she is back in the room. Please call my cell phone: [phone] once the patient is back in the room to be examined. Please have the telemedicine cart in the room and a nurse available to assist me with the exam after we agree to perform the exam. Thank you.
--- NOTE | 2018-10-26 15:40 | MRI ---
Date of service: 10/26/2018 PROCEDURE: MRI BRAIN WITH AND WITHOUT CONTRAST HISTORY: R Frontal lobe mass lesion/behavior change COMPARISON: None available. TECHNIQUE: Multiplanar, multisequence MR images of the brain were obtained with and without intravenous contrast enhancement. 11 cc Omniscan was injected intravenously. FINDINGS: HEMORRHAGE: None DWI: There is a large area of restricted diffusion in the right caudate head, anterior limb and genu of internal capsule and anterior basal ganglia. There are also smaller foci of restricted diffusion in the right centrum semiovale, frontal subcortical and deep white matter. BRAIN PARENCHYMA: There is mild associated edema and mass effect with effacement of the frontal horn of the right lateral ventricle. No midline shift or herniation. No extra-axial fluid collection. ENHANCEMENT: No abnormal intracranial enhancement. VENTRICLES: No hydrocephalus. CRANIUM: There is normal bone marrow signal pattern. ORBITS: Grossly unremarkable. PARANASAL SINUSES/MASTOIDS: Clear VASCULAR SYSTEM: There are normal signal voids in the larger intracranial arteries. OTHER FINDINGS: None . IMPRESSION: Acute right MCA territory infarctions involving the right caudate head, anterior limb and genu of internal capsule and anterior basal ganglia with associated edema and mass effect and effacement of the frontal horn of the right lateral ventricle. No midline shift or herniation. Smaller foci of subacute infarction in the right centrum semiovale, frontal subcortical and deep white matter. Critical findings were discussed with Dr. Vázquez in the ER on 10/26/2018 at 3:35 p.m.
--- NOTE | 2018-10-26 15:46 | MRI ---
Date of service: 10/26/2018 PROCEDURE: Magnetic Resonance Angiography Brain HISTORY: stroke COMPARISON: None available. TECHNIQUE: 3D time of flight MR angiography of the intracranial arteries was performed. Rotating maximum intensity projection images were generated. FINDINGS: INTERNAL CAROTID ARTERIES: Normal flow related signal. The skull base, petrous, cavernous and supraclinoid segments are bilaterally widely patient. ANTERIOR CEREBRAL ARTERIES: Normal flow related signal. A1 and A2 segments are widely patent. Smaller distal branches unremarkable, as visualized. MIDDLE CEREBRAL ARTERIES: Normal flow related signal. M1 and M2 segments are widely patent. Perisylvian branches grossly symmetric. POSTERIOR CIRCULATION: Basilar Artery: Normal flow related signal. Normal in caliber and widely patent. Distal Vertebral Arteries: Normal flow related signal. Widely patent. Posterior Cerebral Arteries: Normal flow related signal. Widely patent. There is origin of bilateral posterior cerebral arteries, an anatomic variant. Posterior Inferior Cerebellar Arteries: Normal flow related signal. Widely patent. ANEURYSM/ VASCULAR MALFORMATIONS: None. OTHER FINDINGS: None. IMPRESSION: Normal noncontrast MR angiography of the brain.
--- NOTE | 2018-10-26 15:48 | MRI ---
Date of service: 10/26/2018 PROCEDURE: MR Angiography of the neck without contrast HISTORY: Stroke COMPARISON: None available. TECHNIQUE: 3D Sweh-pa-ancrip angiography of the neck was performed. Rotating maximum intensity projection images of the cervical carotid and vertebral arteries were generated. The origins of the common carotid arteries were not visualized, which is a limitation inherent to the non-contrast time of flight technique. FINDINGS: RIGHT CAROTID ARTERIES: Common Carotid Artery: Normal. Carotid Bifurcation: Normal. Internal Carotid Artery:Normal. External Carotid Artery (proximal branches): Normal. LEFT CAROTID ARTERIES: Common Carotid Artery: Normal. Carotid Bifurcation: Normal. Internal Carotid Artery:Normal. External Carotid Artery (proximal branches): Normal. VERTEBRAL ARTERIES: Right Vertebral Artery: Normal. Left Vertebral Artery: Normal. OTHER FINDINGS: None. IMPRESSION: Normal MR Angiography of the neck.
[2018-10-26 17:26] LABS: FOLATE 16.2 ng/mL
--- NOTE | 2018-10-26 17:26 | PCM.EEG ---
Electroencephalogram Report - Electroencephalogram Report Procedure Date: 10/26/18 Medication: ASA, Lipitor Interpretation: Technical Information: This was a 16-channel EEG, 1-channel EKG , performed using an Aptara machine., electrodes were applied according to the 10/20 international placement system, impedances were less than 5 K Ohm. Start; ; \End; 06 Total 46 minutes. Indication; alter mental status. During active states, the EEG was characterized by 10-20 Hz, 15-30 uV activity bilaterally in fronto-central regions, with slightly slower frequencies and higher amplitudes emerging on the right. Resting wakefulness was characterized by a symmetric posterior dominant rhythm of 8-9 Hz, 30-50 uV, which was reactive to eye opening and closing, with greater amplitudes on the right. Drowsiness (10;36) was associated with slow roving eye movements, slowing and fragmentation of the posterior dominant rhythm, and bilateral 4-7 Hz, 40-70 uV theta activity, sometimes with a shifting predominance. Photic stimulation was performed and there were no changes in the record. Throughout the recording, there was evidence of intermittent right frontal/central 5 to 6 Hz, 30-75 uV slowing. Impression: This is an abnormal routine -EEG study due to the presence of 1- Right frontal/central intermittent slowing No seizures. INTERPRETATION: The findings are in keeping with a focal cortical abnormality involving the right frontal/central area, in keeping with a structural abnormality in the same area.
[2018-10-26] MEDS ORDERED: Influenza Vaccine (5 YR UP)/PF 60 MCG/0.5 ML SYR IM ONE (20:56)
[2018-10-27] MEDS ORDERED: Influenza Vaccine 60 mcg/0.5 mL SYR (4YR UP) IM ONE (06:00)
[2018-10-27] MEDS ORDERED: Ergocalciferol 50,000 Intl Units Cap PO SCH (07:15)
[2018-10-27 08:15] VITALS: RESP 18
[2018-10-27 09:11] LABS: HEMOGLOBIN 8.5 g/dL (12.0-16.0); MEAN CELL VOLUME 63.4 fl (81.0-99.0); MEAN CORPUSCULAR HEMOGLOBIN 19.5 pg (27.0-31.0); MEAN CORPUSCULAR HGB CONC 30.7 g/dL (33.0-37.0); RBC 4.37 Mil/uL (3.80-5.20); RED CELL DISTRIBUTION WIDTH 18.7 % (11.5-14.5); WHITE BLOOD COUNT 6.4 K/uL (4.8-10.8)
[2018-10-27 09:18] LABS: BLOOD UREA NITROGEN 15 mg/dl (7-17); CALCIUM 8.6 mg/dL (8.4-10.2); GFR NON-AFRICAN AMERICAN > 60
[2018-10-27] MEDS: Dextrose 5%/0.9% NS 1,000 ML IV SCH ×2 (09:43→19:16)
[2018-10-27] MEDS: Enoxaparin 40 mg Syringe SC SCH (11:33)
--- NOTE | 2018-10-27 12:39 | PCM.STROKE ---
Interval History Stroke Date: 10/25/18 Additional history per family/caregiver (name): , Mr. Berrios Interval History: Denies control use; no medications Denies recent travel Denies smoking No other interval changes in current, PMHx, FHx, SocHx, ROS: other than documented above - Treatment Antiplatelet: Acetylsalicylic acid (ASA) Statin: Rosuvastatin - Education Written Stroke Education provided regarding: personal risk factors, stroke warning sign/symptoms, how to activate emergency medical services, need to follow up after discharge Hx Atrial Fibrillation: No Hx Atrial Flutter: No Reason for not on anticoagulation: work up in progress - Therapy Notes I have reviewed care of the patient with: Dr. Cho NIHSS Stroke Scale - Date/Time Evaluation Performed Date Performed: 10/27/18 Time Performed: 12:39 When Was NIHSS Performed: Re-evaluation - How Severe is the Stroke Level of Consciousness: 0=Alert LOC to Questions: 0=Both comments correct LOC to commands: 0=Obeys both correctly Best Gaze: 0=Normal Visual: 0=No visual loss Facial: 0=Normal Motor Arm - Left: 0=No drift Motor Arm - Right: 0=No drift Motor Leg - Left: 0=No drift Motor Leg - Right: 0=No drift Limb Ataxia: 0=Absent Sensory: 0=Normal Best Language: 0=No aphasia Dysarthia: 0=Normal articulation Extinction & Inattention (Neglect): 0=Normal, no object Score: 0 Exam - Vital Sign Vital Signs: Temp Pulse Resp BP Pulse Ox 99.7 F H 76 18 96/62 L 98 10/27/18 12:08 10/27/18 12:08 10/27/18 12:08 10/27/18 12:08 10/27/18 12:08 Constitutional: No distress, Other (flat affect; does not make eye contact throughout most of exam) Ophthalmoscopic: absent: papilledema, hemorrhage Right Pupil: Reactive Right Pupil Size (in mm): 2 Left Pupil: Reactive Left Pupil Size (in mm): 2 Mental Status: Normal: Orientation (oriented x3), Memory, Attention, Language, Fund of Knowledge, Other (flat affect though responds to questions normally and follows all commands) Cranial Nerve: Normal: Visual Dickens, Extraocular movement intact, Facial Sensation, Facial Strength, Hearing, Palate/Tongue Movement, Shoulder Strength Motor: Tone, Bulk Neuro motor strength exam: Left Upper Extremity: 5, Right Upper Extremity: 5, Left Lower Extremity: 5, Right Lower Extremity: 5 Sensation: Intact to pin, Vibration, Propriception throughout DTR: Patellar Left: 2+, Patellar Right: 2+ Flexor Plantar Reflex: Normal Coordination: Finger/nose, Heel/Cardenas - Data reviewed Laboratory results: 10/27/18 08:30 10/27/18 08:30 Triglycerides 119 mg/DL (0-149) 10/26/18 18:00 Cholesterol 129 mg/dL (0-199) 10/26/18 18:00 LDL Cholesterol Direct 73 mg/dL (0-129) 10/26/18 18:00 HDL Cholesterol 26 MG/DL (30-70) L 10/26/18 18:00 Hemoglobin A1c 5.9 % (4.2-6.5) 10/26/18 18:00 Assessment and Plan (1) CVA (cerebral vascular accident) Assessment & Plan: Imaging reviewed: -MRI Brain (10/26/18): Acute right MCA territory infarctions involving the right caudate head, anterior limb and genu of internal capsule and anterior basal ganglia with associated edema and mass effect and effacement of the frontal horn of the right lateral ventricle. No midline shift or herniation. Smaller foci of subacute infarction in the right centrum semiovale, frontal subcortical and deep white matter. -CT Head (10/25/18): Low-attenuation in the head of the right caudate nucleus and anterior limb right internal capsule with mass-effect upon frontal horn right lateral ventricle. Possible ischemic change, likely subacute. Recommend further evaluation with magnetic resonance imaging. -EEG (10/26/18): This is an abnormal routine -EEG study due to the presence of 1- Right frontal/central intermittent slowing; No seizures. The findings are in keeping with a focal cortical abnormality involving the right frontal/central area, in keeping with a structural abnormality in the same area. -ECHO with Bubble (10/27/18): results pending -Continue Statin; continue ASA for now; may consider further anti-platelets or AC depending on the ECHO w bubble results. -Recommend hematology consult. -If ECHO with bubble shows abnormalities, recommend a cardiology consult. -Blood work to evaluate for coagulopathy ordered by primary team. I added the following for complete coagulopathy w/u: MMA; beta 2-glycoprotein IgG, IgA, IgM; cardiolipin Abs; Factor VIII activity; Factor V Leiden mutation; lupus anticoag panel; prothrombin gene analysis. These results may take several days to be resulted and pt can f/u with outpatient for the results if not back before her d/c. -Seizure precautions 2/2 acute infarct. -PT/OT/ST -Discussed with primary team. -Please notify neuro team of any acute changes in pt's condition. Padmini Huerta DNP, [employer] d/w Dr. Cho Status: Acute
--- NOTE | 2018-10-27 13:29 | CP.PCM.PN ---
Subjective - Date & Time of Evaluation Date of Evaluation: 10/27/18 Time of Evaluation: 09:09 - Subjective Subjective: Patient was seen and examined this morning. Friend was at bedside. Patient had no complaints. Denied any f/c/n/v/headache, cp or sob. Objective - Vital Signs/Intake and Output Vital Signs (last 24 hours): Temp Pulse Resp BP Pulse Ox 99.7 F H 76 18 96/62 L 98 10/27/18 12:08 10/27/18 12:08 10/27/18 12:08 10/27/18 12:08 10/27/18 12:08 - Medications Medications: Current Medications Aspirin (Ecotrin) 81 mg PO DAILY [facility] Last Admin: 10/27/18 09:19 Dose: 81 mg Atorvastatin Calcium (Lipitor) 40 mg PO HS [facility] Last Admin: 10/26/18 22:07 Dose: 40 mg Cyanocobalamin (Vitamin B12 1000 Mcg/Ml Inj) 1,000 mcg IM DAILY [facility] Last Admin: 10/27/18 09:20 Dose: 1,000 mcg Enoxaparin Sodium (Lovenox) 40 mg SC DAILY [facility]; Protocol Last Admin: 10/27/18 11:33 Dose: 40 mg Ergocalciferol (Drisdol 50,000 Intl Units Cap) 1 cap PO Q7D [facility] Last Admin: 10/27/18 11:33 Dose: 1 cap Iron Sucrose 100 mg/ Sodium (Chloride) 105 mls @ 105 mls/hr IVPB DAILY [facility] Last Admin: 10/27/18 09:19 Dose: 105 mls/hr Dextrose/Sodium Chloride (Dextrose 5%/0.9% Ns 1000 Ml) 1,000 mls @ 100 mls/hr IV .Q10H [facility] Stop: 10/28/18 08:09 Last Admin: 10/27/18 09:43 Dose: 100 mls/hr Ibuprofen (Motrin Tab) 400 mg PO Q6 PRN PRN Reason: Fever >100.4 F Ondansetron HCl (Zofran Inj) 4 mg IVP Q6 PRN PRN Reason: Nausea/Vomiting - Labs Labs: 10/27/18 08:30 10/27/18 08:30 - Constitutional Appears: Non-toxic - Head Exam Head Exam: ATRAUMATIC, NORMAL INSPECTION - Eye Exam Eye Exam: EOMI - ENT Exam ENT Exam: Mucous Membranes Moist - Respiratory Exam Respiratory Exam: Clear to Ausculation Bilateral - Cardiovascular Exam Cardiovascular Exam: REGULAR RHYTHM, +S1, +S2 - GI/Abdominal Exam GI & Abdominal Exam: Soft, Normal Bowel Sounds. absent: Guarding, Rigid, Tenderness - Neurological Exam Neurological Exam: Alert, Awake, CN II-XII Intact, Oriented x3 Additional comments: sensation intact in upper and lower extremities b/l - Psychiatric Exam Psychiatric exam: Normal Mood - Skin Skin Exam: Dry, Intact Assessment and Plan - Assessment and Plan (Free Text) Assessment: 1. Acute right MCA & subacute stroke MRI of head showed :Acute right MCA territory infarctions involving the right caudate head, anterior limb and genu of internal capsule and anterior basal ganglia with associated edema and mass effect and effacement of the frontal horn of the right lateral ventricle. No midline shift or herniation. Neuro recommendations appreciated. Hematology consulted. FU hypercoag. workup -C/w aspirin & statin -FU echo 2. Vit B12 deficiency -C/w supplementation 3. Vit D deficiency -C/w supplementation 4. Iron deficiency anemia -C/w supplementation 5. DVT prophylaxis -lovenox sc
--- NOTE | 2018-10-27 15:08 | CARD ---
APPROVED REPORT Date of service: 10/27/2018 EXAM: Two-dimensional and M-mode echocardiogram with Doppler, color Doppler with bubble study. Other Information Quality : GoodRhythm : NSR INDICATION Septal Defect Echo Enhancing Agent Indication: Rule Out Septal Defect Agent/Amount Used: Agitated Saline 2D DIMENSIONS IVSd0.85 (0.7-1.1cm)LVDd3.97 (3.9-5.9cm) LVOT Diameter1.92 (1.8-2.4cm)PWd0.83 (0.7-1.1cm) IVSs1.21 (0.8-1.2cm)LVDs2.57 (2.5-4.0cm) FS (%) 35.3 %PWs1.20 (0.8-1.2cm) M-Mode DIMENSIONS Left Atrium (MM)3.25 (2.5-4.0cm)IVSd0.84 (0.7-1.1cm) Aortic Root2.22 (2.2-3.7cm)LVDd4.35 (4.0-5.6cm) Aortic Cusp Exc.1.60 (1.5-2.0cm)PWd0.91 (0.7-1.1cm) IVSs1.19 cmFS (%) 44 % LVDs2.44 (2.0-3.8cm)PWs1.48 cm Aortic Valve AoV Peak Quzxrlqi922.2cm/sAoV VTI24.7cmAO Peak GR.9mmHg LVOT Peak Wyebbeyi773.0cm/sLVOT VTI18.49cmAO Mean GR.5mmHg DMITRY (VMAX)1.45qh1IQG (VTI)1.39cm2 Mitral Valve MV E Mnkniiug79.6cm/sMV DECEL [id number] A Oayxtler78.8cm/s MV [id number]/A ratio1.2MVA (PHT)3.55cm2 TDI Lateral E' Peak V14.75cm/sMedial E' Peak V8.64cm/sE/Lateral E'4.4 E/Medial E'7.5 LEFT VENTRICLE The left ventricle is normal size. There is normal left ventricular wall thickness. The left ventricular systolic function is normal. The estimated ejection fraction is 60-65% No regional wall motion abnormalities noted.. The left ventricular diastolic function is normal. No left ventricle thrombus noted on this study. There is no ventricular septal defect visualized. There is no left ventricular aneurysm. There is no mass noted in the left ventricle. RIGHT VENTRICLE The right ventricle is normal size. There is normal right ventricular wall thickness. The right ventricular systolic function is normal. ATRIA The left atrium size is normal. The right atrium size is normal. The interatrial septum is intact with no evidence for an atrial septal defect. AORTIC VALVE The aortic valve is normal in structure. No aortic regurgitation is present. There is no aortic valvular stenosis. There is no aortic valvular vegetation. MITRAL VALVE The mitral valve is normal in structure. There is no evidence of mitral valve prolapse. There is no mitral valve stenosis. There is trace mitral valve regurgitation noted. TRICUSPID VALVE The tricuspid valve is normal in structure. There is no tricuspid valve regurgitation noted. There is no tricuspid valve prolapse or vegetation. There is no tricuspid valve stenosis. PULMONIC VALVE The pulmonary valve is normal in structure. There is no pulmonic valvular regurgitation. There is no pulmonic valvular stenosis. GREAT VESSELS The aortic root is normal in size. The ascending aorta is normal in size. The pulmonary artery is normal. The IVC is normal in size and collapses >50% with inspiration. PERICARDIAL EFFUSION There is no pericardial effusion. There is no pleural effusion. <Conclusion> The estimated ejection fraction is 60-65% The left ventricular diastolic function is normal. The left atrium size is normal. The interatrial septum is intact with no evidence for an atrial septal defect. There is trace mitral valve regurgitation noted. There is no tricuspid valve regurgitation noted.
[2018-10-28 06:24] LABS: BASO % 0.2 % (0.0-2.0); EOS # 0.1 K/uL (0.0-0.7); HEMOGLOBIN 8.1 g/dL (12.0-16.0); LYMPH # 1.5 K/uL (1.0-4.3); LYMPH % 20.6 % (20.0-40.0); MEAN CELL VOLUME 64.8 fl (81.0-99.0); MEAN CORPUSCULAR HEMOGLOBIN 19.6 pg (27.0-31.0); MEAN CORPUSCULAR HGB CONC 30.3 g/dL (33.0-37.0); MEAN PLATELET VOLUME 6.3 fl (7.2-11.7); MONO # 0.6 K/uL (0.0-0.8); NEUT # 5.3 K/uL (1.8-7.0); NEUT % 70.2 % (50.0-75.0); NRBC % 0.2 % (0.0-0.0); RBC 4.14 Mil/uL (3.80-5.20); RED CELL DISTRIBUTION WIDTH 18.9 % (11.5-14.5); WHITE BLOOD COUNT 7.5 K/uL (4.8-10.8)
[2018-10-28 06:34] LABS: BLOOD UREA NITROGEN 13 mg/dl (7-17); CALCIUM 8.3 mg/dL (8.4-10.2); GFR NON-AFRICAN AMERICAN > 60
[2018-10-28] MEDS: Enoxaparin 40 mg Syringe SC SCH (09:42)
[2018-10-28] MEDS: Dextrose 5%/0.9% NS 1,000 ML IV SCH (10:09)
[2018-10-28] MEDS ORDERED: guaiFENesin-DM 600-30 mg ER Tab PO SCH (10:30)
--- NOTE | 2018-10-28 10:45 | CP.PCM.DIS ---
<Phyllis Nixon - Last Filed: 10/28/18 12:12> Provider - Provider Date of Admission: 10/25/18 23:31 Attending physician: Duane Rae MD Consults: 10/25/18 22:26 Crisis Evaluation As Ordered Comment: Physician Instructions: Reason For Exam: [email or web address] josé behvaior 10/26/18 00:16 Neurology Consult Routine Comment: Consulting Provider: Dima Anaya Consulting Physician: Dima Anaya Reason for Consult: R Frontal lobe mass lesion/behavior change 10/26/18 00:18 Psychiatry Consult Routine Comment: Consulting Provider: Pretty Callahan Consulting Physician: Pretty Callahan Reason for Consult: behavior change/flat affect 10/27/18 07:06 Case Management Referral Routine Comment: Physician Instructions: Reason For Exam: Reason for Referral: stroke 10/27/18 13:27 Physician Consult Routine Comment: Consulting Provider: Osei Mcdaniel Consulting Physician: Osei Mcdaniel Reason for Consult: ACUTE STROKE POSSIBLY DUE TO HYPERCOAG STATE Time Spent in preparation of Discharge (in minutes): 45 Hospital Course - Lab Results Lab Results: Most Recent Lab Values WBC 7.5 K/uL (4.8-10.8) 10/28/18 04:30 RBC 4.14 Mil/uL (3.80-5.20) 10/28/18 04:30 Hgb 8.1 g/dL (12.0-16.0) L 10/28/18 04:30 Hct 26.8 % (34.0-47.0) L 10/28/18 04:30 MCV 64.8 fl (81.0-99.0) L 10/28/18 04:30 MCH 19.6 pg (27.0-31.0) L 10/28/18 04:30 MCHC 30.3 g/dL (33.0-37.0) L 10/28/18 04:30 RDW 18.9 % (11.5-14.5) H 10/28/18 04:30 Plt Count 422 K/uL (130-400) H 10/28/18 04:30 MPV 6.3 fl (7.2-11.7) L 10/28/18 04:30 Neut % (Auto) 70.2 % (50.0-75.0) 10/28/18 04:30 Lymph % (Auto) 20.6 % (20.0-40.0) 10/28/18 04:30 [place] % (Auto) 8.0 % (0.0-10.0) 10/28/18 04:30 Eos % (Auto) 1.0 % (0.0-4.0) 10/28/18 04:30 Baso % (Auto) 0.2 % (0.0-2.0) 10/28/18 04:30 Neut # (Auto) 5.3 K/uL (1.8-7.0) 10/28/18 04:30 Lymph # (Auto) 1.5 K/uL (1.0-4.3) 10/28/18 04:30 [place] # (Auto) 0.6 K/uL (0.0-0.8) 10/28/18 04:30 Eos # (Auto) 0.1 K/uL (0.0-0.7) 10/28/18 04:30 Baso # (Auto) 0.0 K/uL (0.0-0.2) 10/28/18 04:30 Sodium 138 mmol/l (132-148) 10/28/18 04:30 Potassium 3.6 MMOL/L (3.6-5.0) 10/28/18 04:30 Chloride 104 mmol/L (98-107) 10/28/18 04:30 Carbon Dioxide 24 mmol/L (22-30) 10/28/18 04:30 Anion Gap 14 (10-20) 10/28/18 04:30 BUN 13 mg/dl (7-17) 10/28/18 04:30 Creatinine 0.5 mg/dl (0.7-1.2) L 10/28/18 04:30 Est GFR ( Amer) > 60 10/28/18 04:30 Est GFR (Non-Af Amer) > 60 10/28/18 04:30 Random Glucose 91 mg/dL (65-105) 10/28/18 04:30 Hemoglobin A1c 5.9 % (4.2-6.5) 10/26/18 18:00 Calcium 8.3 mg/dL (8.4-10.2) L 10/28/18 04:30 Iron 28 ug/dL (37-170) L 10/26/18 07:30 TIBC 404 ug/dL (250-450) 10/26/18 07:30 % Saturation 7 % (20-55) L 10/26/18 07:30 Ferritin 4.8 ng/Ml (6.24-137.0) L 10/26/18 07:30 Total Bilirubin 0.6 mg/dl (0.2-1.3) 10/25/18 21:31 AST 25 U/L (14-36) 10/25/18 21:31 ALT 35 U/L (9-52) 10/25/18 21:31 Alkaline Phosphatase 87 U/L (38-126) 10/25/18 21:31 Total Protein 7.7 G/DL (6.3-8.2) 10/25/18 21:31 Albumin 4.2 g/dL (3.5-5.0) 10/25/18 21:31 Globulin 3.5 gm/dL (2.2-3.9) 10/25/18 21:31 Albumin/Globulin Ratio 1.2 (1.0-2.1) 10/25/18 21:31 Triglycerides 119 mg/DL (0-149) 10/26/18 18:00 Cholesterol 129 mg/dL (0-199) 10/26/18 18:00 LDL Cholesterol Direct 73 mg/dL (0-129) 10/26/18 18:00 HDL Cholesterol 26 MG/DL (30-70) L 10/26/18 18:00 Vitamin B12 < 159 pg/mL (239-931) L 10/26/18 07:30 25-OH Vitamin D Total 13.7 NG/ML (30.0-100.0) L 10/26/18 18:00 Folate 16.2 ng/mL 10/26/18 07:30 Homocysteine 16.3 umol/L (4.7-12.6) H 10/26/18 18:00 Free T4 0.94 ng/dL (0.78-2.19) 10/26/18 07:30 TSH 3rd Generation 1.38 mIU/ML (0.46-4.68) 10/26/18 07:30 Urine Color Yellow (YELLOW) 10/25/18 21:31 Urine Clarity Clear (Clear) 10/25/18 21:31 Urine pH 6.0 (5.0-8.0) 10/25/18 21:31 Ur Specific [place] 1.013 (1.003-1.030) 10/25/18 21:31 Urine Protein Negative mg/dL (NEGATIVE) 10/25/18 21:31 Urine Glucose (UA) Neg mg/dL (NEGATIVE) 10/25/18 21:31 Urine Ketones Negative mg/dL (NEGATIVE) 10/25/18 21:31 Urine Blood Negative (NEGATIVE) 10/25/18 21:31 Urine Nitrate Negative (NEGATIVE) 10/25/18 21:31 Urine Bilirubin Negative (NEGATIVE) 10/25/18 21:31 Urine Urobilinogen 0.2-1.0 mg/dL (0.2-1.0) 10/25/18 21:31 Ur Leukocyte Esterase Trace [place]/uL (Negative) 10/25/18 21:31 Urine RBC (Auto) 1 /hpf (0-3) 10/25/18 21:31 Urine Microscopic WBC < 1 /hpf (0-5) 10/25/18 21:31 Ur Squamous Epith Cells < 1 /hpf (0-5) 10/25/18 21:31 Urine Opiates Screen Negative (NEGATIVE) 10/25/18 21:31 Urine Methadone Screen Negative (NEGATIVE) 10/25/18 21:31 Ur Barbiturates Screen Negative (NEGATIVE) 10/25/18 21:31 Ur Phencyclidine Scrn Negative (NEGATIVE) 10/25/18 21:31 Ur Amphetamines Screen Negative (NEGATIVE) 10/25/18 21:31 U Benzodiazepines Scrn Negative (NEGATIVE) 10/25/18 21:31 U Oth Cocaine Metabols Negative (NEGATIVE) 10/25/18 21:31 U Cannabinoids Screen Negative (NEGATIVE) 10/25/18 21:31 Alcohol, Quantitative < 10 mg/dl (0-10) 10/25/18 21:31 - Hospital Course Hospital Course: This is 33 y/o F with no significant PMH admitted to [facility] for evaluation of abnormal behavior and admitted after being found to have Acute Right MCA infarcts. Neuro and hematology were consulted. FU hematology workup.MRI findings are listed below. Patient was seen and examined this morning. Patient has no complaints. 1. Acute right MCA & subacute stroke MRI of head showed :Acute right MCA territory infarctions involving the right caudate head, anterior limb and genu of internal capsule and anterior basal ganglia with associated edema and mass effect and effacement of the frontal horn of the right lateral ventricle. No midline shift or herniation. -C/w aspirin 81mg PO QD & lipitos 40mg PO HS (patient counseled that lipitor is teratogenic and contraception should be used while on the medication. Pt understood and is agreeable. 2. Vit B12 deficiency -C/w supplementation 3. Vit D deficiency -C/w supplementation 4. Iron deficiency anemia -C/w supplementation Discharge Exam - Head Exam Head Exam: ATRAUMATIC, NORMAL INSPECTION - Eye Exam Eye Exam: EOMI - ENT Exam ENT Exam: Mucous Membranes Moist - Respiratory Exam Respiratory Exam: NORMAL BREATHING PATTERN - Cardiovascular Exam Cardiovascular Exam: REGULAR RHYTHM, +S1, +S2 - GI/Abdominal Exam GI & Abdominal Exam: Normal Bowel Sounds, Soft. absent: Distended, Guarding, Rigid, Tenderness - Back Exam Back exam: absent: CVA tenderness (L) - Neurological Exam Neurological exam: Alert, CN II-XII Intact, Oriented x3 - Psychiatric Exam Psychiatric exam: Flat Affect - Skin Skin Exam: Dry, Intact Discharge Plan - Discharge Medications Prescriptions: Ascorbate Calcium [Vitamin C] 500 mg PO DAILY #30 tablet Aspirin [Ecotrin] 81 mg PO DAILY #30 tabec Atorvastatin [Lipitor] 40 mg PO HS #30 tab Cyanocobalamin [Vitamin B12 1000 mcg Tab] 1,000 mcg PO DAILY #60 tab Ergocalciferol [Drisdol 50,000 Intl Units Cap] 1 cap PO Q7D #7 cap Ferrous Sulfate 325 mg PO BID #90 tablet Guaifenesin/Dextromethorphan [Mucinex Dm ER 1,200-60 mg Tab] 1 each PO BID #10 tab.er.12h - Follow Up Plan Condition: STABLE Disposition: HOME/ ROUTINE Referrals: [facility] [Provider Group] Jai Cho MD [Medical Doctor] - <Radha Garcia - Last Filed: 10/28/18 14:54> Provider - Provider Date of Admission: 10/25/18 23:31 Attending physician: Duane Rae MD Consults: 10/25/18 22:26 Crisis Evaluation As Ordered Comment: Physician Instructions: Reason For Exam: aguilar ludwigior 10/26/18 00:16 Neurology Consult Routine Comment: Consulting Provider: Dima Anaya Consulting Physician: Dima Anaya Reason for Consult: R Frontal lobe mass lesion/behavior change 10/26/18 00:18 Psychiatry Consult Routine Comment: Consulting Provider: Pretty Callahan Consulting Physician: Pretty Callahan Reason for Consult: behavior change/flat affect 10/27/18 07:06 Case Management Referral Routine Comment: Physician Instructions: Reason For Exam: Reason for Referral: stroke 10/27/18 13:27 Physician Consult Routine Comment: Consulting Provider: Osei Mcdaniel Consulting Physician: Osei Mcdaniel Reason for Consult: ACUTE STROKE POSSIBLY DUE TO HYPERCOAG STATE Hospital Course - Lab Results Lab Results: Most Recent Lab Values WBC 7.5 K/uL (4.8-10.8) 10/28/18 04:30 RBC 4.14 Mil/uL (3.80-5.20) 10/28/18 04:30 Hgb 8.1 g/dL (12.0-16.0) L 10/28/18 04:30 Hct 26.8 % (34.0-47.0) L 10/28/18 04:30 MCV 64.8 fl (81.0-99.0) L 10/28/18 04:30 MCH 19.6 pg (27.0-31.0) L 10/28/18 04:30 MCHC 30.3 g/dL (33.0-37.0) L 10/28/18 04:30 RDW 18.9 % (11.5-14.5) H 10/28/18 04:30 Plt Count 422 K/uL (130-400) H 10/28/18 04:30 MPV 6.3 fl (7.2-11.7) L 10/28/18 04:30 Neut % (Auto) 70.2 % (50.0-75.0) 10/28/18 04:30 Lymph % (Auto) 20.6 % (20.0-40.0) 10/28/18 04:30 [place] % (Auto) 8.0 % (0.0-10.0) 10/28/18 04:30 Eos % (Auto) 1.0 % (0.0-4.0) 10/28/18 04:30 Baso % (Auto) 0.2 % (0.0-2.0) 10/28/18 04:30 Neut # (Auto) 5.3 K/uL (1.8-7.0) 10/28/18 04:30 Lymph # (Auto) 1.5 K/uL (1.0-4.3) 10/28/18 04:30 [place] # (Auto) 0.6 K/uL (0.0-0.8) 10/28/18 04:30 Eos # (Auto) 0.1 K/uL (0.0-0.7) 10/28/18 04:30 Baso # (Auto) 0.0 K/uL (0.0-0.2) 10/28/18 04:30 Sodium 138 mmol/l (132-148) 10/28/18 04:30 Potassium 3.6 MMOL/L (3.6-5.0) 10/28/18 04:30 Chloride 104 mmol/L (98-107) 10/28/18 04:30 Carbon Dioxide 24 mmol/L (22-30) 10/28/18 04:30 Anion Gap 14 (10-20) 10/28/18 04:30 BUN 13 mg/dl (7-17) 10/28/18 04:30 Creatinine 0.5 mg/dl (0.7-1.2) L 10/28/18 04:30 Est GFR ( Amer) > 60 10/28/18 04:30 Est GFR (Non-Af Amer) > 60 10/28/18 04:30 Random Glucose 91 mg/dL (65-105) 10/28/18 04:30 Hemoglobin A1c 5.9 % (4.2-6.5) 10/26/18 18:00 Calcium 8.3 mg/dL (8.4-10.2) L 10/28/18 04:30 Iron 28 ug/dL (37-170) L 10/26/18 07:30 TIBC 404 ug/dL (250-450) 10/26/18 07:30 % Saturation 7 % (20-55) L 10/26/18 07:30 Ferritin 4.8 ng/Ml (6.24-137.0) L 10/26/18 07:30 Total Bilirubin 0.6 mg/dl (0.2-1.3) 10/25/18 21:31 AST 25 U/L (14-36) 10/25/18 21:31 ALT 35 U/L (9-52) 10/25/18 21:31 Alkaline Phosphatase 87 U/L (38-126) 10/25/18 21:31 Total Protein 7.7 G/DL (6.3-8.2) 10/25/18 21: Albumin 4.2 g/dL (3.5-5.0) 10/25/18 21: Globulin 3.5 gm/dL (2.2-3.9) 10/25/18 21: Albumin/Globulin Ratio 1.2 (1.0-2.1) 10/25/18 21:31 Triglycerides 119 mg/DL (0-149) 10/26/18 18:00 Cholesterol 129 mg/dL (0-199) 10/26/18 18:00 LDL Cholesterol Direct 73 mg/dL (0-129) 10/26/18 18:00 HDL Cholesterol 26 MG/DL (30-70) L 10/26/18 18:00 Vitamin B12 < 159 pg/mL (239-931) L 10/26/18 07:30 25-OH Vitamin D Total 13.7 NG/ML (30.0-100.0) L 10/26/18 18:00 Folate 16.2 ng/mL 10/26/18 07:30 Homocysteine 16.3 umol/L (4.7-12.6) H 10/26/18 18:00 Free T4 0.94 ng/dL (0.78-2.19) 10/26/18 07:30 TSH 3rd Generation 1.38 mIU/ML (0.46-4.68) 10/26/18 07:30 Urine Color Yellow (YELLOW) 10/25/18 21:31 Urine Clarity Clear (Clear) 10/25/18 21:31 Urine pH 6.0 (5.0-8.0) 10/25/18 21: Ur Specific [place] 1.013 (1.003-1.030) 10/25/18 21:31 Urine Protein Negative mg/dL (NEGATIVE) 10/25/18 21:31 Urine Glucose (UA) Neg mg/dL (NEGATIVE) 10/25/18 21: Urine Ketones Negative mg/dL (NEGATIVE) 04/03/19 21:31 Urine Blood Negative (NEGATIVE) 10/25/18 21:31 Urine Nitrate Negative (NEGATIVE) 10/25/18 21:31 Urine Bilirubin Negative (NEGATIVE) 10/25/18 21:31 Urine Urobilinogen 0.2-1.0 mg/dL (0.2-1.0) 10/25/18 21:31 Ur Leukocyte Esterase Trace [place]/uL (Negative) 10/25/18 21:31 Urine RBC (Auto) 1 /hpf (0-3) 10/25/18 21:31 Urine Microscopic WBC < 1 /hpf (0-5) 10/25/18 21:31 Ur Squamous Epith Cells < 1 /hpf (0-5) 10/25/18 21:31 Urine Opiates Screen Negative (NEGATIVE) 10/25/18 21:31 Urine Methadone Screen Negative (NEGATIVE) 10/25/18 21:31 Ur Barbiturates Screen Negative (NEGATIVE) 10/25/18 21:31 Ur Phencyclidine Scrn Negative (NEGATIVE) 10/25/18 21:31 Ur Amphetamines Screen Negative (NEGATIVE) 10/25/18 21:31 U Benzodiazepines Scrn Negative (NEGATIVE) 10/25/18 21:31 U Oth Cocaine Metabols Negative (NEGATIVE) 10/25/18 21:31 U Cannabinoids Screen Negative (NEGATIVE) 10/25/18 21:31 Alcohol, Quantitative < 10 mg/dl (0-10) 10/25/18 21:31 Attending/Attestation - Attestation I have personally seen and examined this patient.: Yes I have fully participated in the care of the patient.: Yes I have reviewed all pertinent clinical information, including history, physical exam and plan: Yes Notes (Text): Acute CVA Iron Deficiency Anemia B12 Deficiency MRI of Brain : Acute right MCA territory infarctions involving the right caudate head, anterior limb and genu of internal capsule and anterior basal ganglia with associated edema and mass effect and effacement of the frontal horn of the right lateral ventricle. No midline shift or herniation. Smaller foci of subacute infarction in the right centrum semiovale, frontal subcortical and deep white matter. - Pt has no residual neuro deficit, ambulates with normal gait, symptoms resolved and pt pt at baseline - Neuro consulted - no abn seen on ECHO, MRA of the Head and Neck -cont ASA, Statin - received B12 IM while in the hospital, d/c home on PO B12 -also received IV Venofer , will d/c home on PO Ferrous sulfate - pt to ff up in the clinic
[2018-10-28 12:09] VITALS: BP 97/62; PULSE 80; TEMP 99.3; O2SAT 99
[2018-10-30 12:45] LABS: METHYLMALONIC ACID,SERUM 400 nmol/L (87-318)
[2018-10-30 15:27] LABS: B2 GLYCOPROTEIN I AB(IGA) 24 SAU (<=20); B2 GLYCOPROTEIN I AB(IGG) <9 SGU (<=20); B2 GLYCOPROTEIN I AB(IGM) <9 SMU (<=20)
[2018-10-30 16:23] LABS: PHOSPHATIDYLSERINE AB IGA 20 U/mL (<20); PHOSPHATIDYLSERINE AB IGG <10 U/mL (<10); PHOSPHATIDYLSERINE AB IGM <25 U/mL (<25)
[2018-10-31 00:11] LABS: CARDIOLIPIN AB (IGA) <11 APL (<=11); CARDIOLIPIN AB (IGG) <14 GPL (<=14); CARDIOLIPIN AB (IGM) <12 MPL (<=12)
[2018-10-31 08:05] LABS: CARDIOLIPIN AB (IGA) 11 APL (<=11)
== END 2018-10-28 14:37 | disposition home or self-care (01) | DRG 45 ==
LOC: H.ER 20:08 → H.ERHOLD 23:31 → H.TEL 10-26 18:47
PROVIDERS: ADMIT Internal Medicine; ATTEND Internal Medicine
DX: I63.511 Cerebral infarction due to unspecified occlusion or stenosis of right middle cerebral artery (principal); E53.8 Deficiency of other specified B group vitamins; D50.9 Iron deficiency anemia, unspecified; E55.9 Vitamin D deficiency, unspecified; Z23 Encounter for immunization